=== PATIENT | female | born 1935 | race Caucasian/White ===

== ENCOUNTER 2024-07-03 21:00 | Inpatient (IN) | payer MEDICARE ==
[~2024-07-03] VITALS: Ht 170.2 cm; Wt 77.2 kg
[2024-07-03 22:03] VITALS: BP 131/76; TEMP 98; O2SAT 94
[2024-07-03] MEDS ORDERED: TIZA-180 PO (22:32)
[2024-07-03] MEDS ORDERED: TRAM50TA PO (22:32)
[2024-07-03] MEDS ORDERED: CYCL5TAB PO (22:32)
[2024-07-03] MEDS ORDERED: POLY17PO4 PO (22:32)
[2024-07-03] MEDS ORDERED: PANT40TA2 PO (22:32)
[2024-07-03] MEDS ORDERED: HYDR-4209 PO (22:32)
[2024-07-03] MEDS ORDERED: ONDA4TAB11 PO (22:32)
[2024-07-03] MEDS ORDERED: BISA10SU61 RC (22:32)
[2024-07-03] MEDS ORDERED: ACET325T53 PO (22:32)
[2024-07-03] MEDS ORDERED: SENN-18 PO (22:32)
[2024-07-03] MEDS ORDERED: AMLO5TAB4 PO (22:32)
[2024-07-03] MEDS ORDERED: METO-357 PO (22:32)
[2024-07-03] MEDS ORDERED: ATOR40TA PO (22:32)
[2024-07-04] MEDS: ACETAMINOPHEN 325 MG TABLET PO PRN (09:45)
[2024-07-04] MEDS ORDERED: OMEP20CA15 PO (09:55)
[2024-07-04] MEDS ORDERED: PANT40TA49 PO (09:57)
[2024-07-04] MEDS ORDERED: HYDROCODONE/APAP 5-325MG TABLET PO PRN (10:00)
[2024-07-04] MEDS ORDERED: BISACODYL 10 MG SUPP.RECT RC PRN (10:00)
[2024-07-04] MEDS ORDERED: TIZANIDINE HCL 4 MG TABLET PO PRN (10:15)
[2024-07-04] MEDS: PANTOPRAZOLE SODIUM 40 MG TABLET.DR PO SCH (10:44)
[2024-07-04] MEDS: AMLODIPINE 5 MG TABLET PO SCH (10:44)
[2024-07-04] MEDS: METOPROLOL SUCCINATE XL 50 MG TAB.SR.24H PO SCH (10:45)
[2024-07-04] MEDS: ATORVASTATIN 40 MG TABLET PO SCH (11:41)
[2024-07-04] MEDS ORDERED: GEMTESA PO (11:45)
[2024-07-04 12:00] VITALS: O2SAT 96
[2024-07-04 16:00] VITALS: BP 135/79; TEMP 98.2; O2SAT 96
[2024-07-04 20:00] VITALS: BP 103/56; TEMP 98.5; O2SAT 96
[2024-07-05 04:17] VITALS: O2SAT 97
[2024-07-05 06:00] VITALS: BP 140/90; TEMP 98.5; O2SAT 95
[2024-07-05] MEDS ORDERED: VIBEGRON 75 MG PO SCH (09:00)
[2024-07-05] MEDS ORDERED: [UNRECOGNIZED DRUG - OTHER] PO SCH (09:00)
[2024-07-05 10:05] VITALS: O2SAT 98
[2024-07-05 16:04] VITALS: BP 144/73; TEMP 98.4; O2SAT 95
[2024-07-05 20:00] VITALS: BP 150/82; TEMP 98.9; O2SAT 95
[2024-07-05] MEDS: METOPROLOL SUCCINATE XL 50 MG TAB.SR.24H PO SCH (20:28)
[2024-07-06 05:42] VITALS: O2SAT 98
[2024-07-06 06:00] VITALS: BP 117/65; TEMP 98; O2SAT 94
[2024-07-06] MEDS: TRAMADOL HCL 50 MG TABLET PO PRN (10:30)
[2024-07-06] MEDS: ENSURE ENLIVE (VAN) 240 ML LIQUID PO SCH (12:56)
[2024-07-06] MEDS: BISACODYL 5 MG TABLET.DR PO PRN (14:18)
[2024-07-06] MEDS: TRAMADOL HCL 50 MG TABLET PO SCH (15:00)
[2024-07-06 15:25] VITALS: O2SAT 98
[2024-07-06 16:18] VITALS: BP 117/78; TEMP 98.4; O2SAT 95
[2024-07-06 19:40] VITALS: BP 160/78; TEMP 98.5; O2SAT 94
[2024-07-07 05:51] VITALS: BP 138/75; TEMP 98.4; O2SAT 94
[2024-07-07 16:06] VITALS: BP 124/64; TEMP 97.6; O2SAT 95
[2024-07-07] MEDS: TRAMADOL HCL 50 MG TABLET PO PRN (18:04)
[2024-07-07] MEDS: ONDANSETRON ODT 4 MG TAB.RAPDIS SL PRN (18:04)
[2024-07-07 21:20] VITALS: BP 130/75; TEMP 98.2; O2SAT 99
[2024-07-07 21:36] VITALS: O2SAT 98
[2024-07-07] MEDS ORDERED: TRAMADOL HCL 50 MG TABLET PO SCH ×2 (22:00)
[2024-07-08 06:02] VITALS: BP 123/66; TEMP 98; O2SAT 100
[2024-07-08] MEDS: REMEDY ESSENTIAL ZINC PASTE 113 GM TOP PRN (08:52)
[2024-07-08] MEDS: MIRALAX 17 GM POWD.PACK PO PRN (09:40)
[2024-07-08 09:56] VITALS: BP 124/65; TEMP 98.2; O2SAT 99
[2024-07-08 14:40] VITALS: O2SAT 95; O2SAT 96
[2024-07-08 17:53] VITALS: BP 128/60; TEMP 98; O2SAT 99
[2024-07-08 20:00] VITALS: BP 131/75; TEMP 98.5; O2SAT 98
[2024-07-08 21:50] VITALS: O2SAT 96
[2024-07-09 05:27] VITALS: BP 101/63; TEMP 97.8; O2SAT 95
[2024-07-09 15:20] VITALS: O2SAT 97
[2024-07-09 16:39] VITALS: BP 128/62; TEMP 99.2; O2SAT 95
[2024-07-09 20:19] VITALS: BP 115/65; TEMP 98.2; O2SAT 93
[2024-07-09 20:38] VITALS: O2SAT 97
[2024-07-10 06:30] VITALS: BP 126/65; TEMP 98.3; O2SAT 93
[2024-07-10 06:48] LABS: BASOPHILS # (AUTO) 0.1 K/UL (0.0-0.2); BASOPHILS % (AUTO) 1.1 % (0.0-2.0); EOSINOPHILS # (AUTO) 0.3 K/uL (0.0-0.7); EOSINOPHILS % (AUTO) 4.4 % (0.0-7.0); HEMATOCRIT 32.4 % (31.2-41.9); HEMOGLOBIN 10.4 g/dL (10.9-14.3); LYMPHOCYTES # (AUTO) 1.5 K/uL (0.8-4.8); LYMPHOCYTES % (AUTO) 23.5 % (20.5-51.5); MEAN CORPUSCULAR HEMOGLOBIN 25.9 uug (24.7-32.8); MEAN CORPUSCULAR HGB CONC 32 g/dL (32.3-35.6); MEAN CORPUSCULAR VOLUME 80.9 fL (75.5-95.3); MONOCYTES # (AUTO) 1.1 K/uL (0.1-1.30); MONOCYTES % (AUTO) 16.6 % (0.0-11.0); NEUTROPHILS # (AUTO) 3.6 K/uL (1.8-8.9); NEUTROPHILS % (AUTO) 54.4 % (38.5-71.5); PLATELET COUNT (AUTO) 302 K/uL (179-408); RED BLOOD CELL COUNT(AUTO) 4.01 MIL/uL (3.63-4.92); RED CELL DISTRIBUTION WIDTH 15.6 % (12.3-17.7); WHITE BLOOD COUNT (AUTO) 6.6 K/uL (3.8-11.8)
[2024-07-10 07:01] LABS: ALANINE AMINOTRANSFERASE 12 U/L (14-59); ALBUMIN 2.9 g/dL (3.4-5.0); ALKALINE PHOSPHATASE 119 U/L (50-136); ASPARTATE AMINOTRANSFERASE 18 U/L (15-37); BILIRUBIN,TOTAL 0.9 mg/dL (0.2-1.0); CALCIUM 9.5 mg/dL (8.5-10.1); CARBON DIOXIDE 26 mmol/L (21-32); CHLORIDE 100 mmol/L (98-107); CREATININE 0.7 mg/dL (0.6-1.3); DIFFERENTIAL COMMENT 1; GLUCOSE 66 mg/dL (74-106); MAGNESIUM 1.8 mg/dL (1.8-2.4); PHOSPHOROUS 3.1 mg/dL (2.5-4.9); POTASSIUM 3.9 mmol/L (3.5-5.1); SODIUM SERUM 135 mmol/L (136-145); TOTAL PROTEIN, SERUM 6.5 g/dL (6.4-8.2); UREA NITROGEN, BLOOD 16 mg/dL (7-18)
[2024-07-10 08:59] LABS: EOSINOPHILS % (MANUAL) 2 % (0-8); LYMPHOCYTES % (MANUAL) 26 % (20-40); MONOCYTES % (MANUAL) 9 % (2-10); NEUTROPHILS % (MANUAL) 63 % (42-75); PLATELET ESTIMATE ADEQUATE
[2024-07-10 09:00] LABS: ANISOCYTOSIS 1+; HYPOCHROMASIA 1+
[2024-07-10 20:30] VITALS: BP 130/70; TEMP 98.2; O2SAT 93
[2024-07-11 06:25] VITALS: BP 142/79; TEMP 98.3; O2SAT 93
[2024-07-11 15:55] VITALS: BP 124/80; TEMP 97.9; O2SAT 94
[2024-07-11] MEDS: METHOCARBAMOL 500 MG TABLET PO PRN (16:24)
[2024-07-11 20:10] VITALS: BP 136/67; TEMP 97.8; O2SAT 90
[2024-07-12 06:10] VITALS: BP 128/71; TEMP 97.5; O2SAT 91
[2024-07-12 16:13] VITALS: BP 148/64; TEMP 97.9; O2SAT 95
[2024-07-12] MEDS: TRAMADOL HCL 50 MG TABLET PO SCH (19:29)
[2024-07-12 20:00] VITALS: BP 123/64; TEMP 98; O2SAT 95
[2024-07-13 06:00] VITALS: BP 132/71; TEMP 98.4; O2SAT 94
[2024-07-13 16:04] VITALS: BP 132/66; TEMP 98.5; O2SAT 96
[2024-07-13 20:00] VITALS: BP 123/74; TEMP 98.5; O2SAT 95
[2024-07-13 21:02] VITALS: O2SAT 95
[2024-07-14 06:00] VITALS: BP 150/83; TEMP 98.1; O2SAT 93
[2024-07-14 16:00] VITALS: BP 111/65; TEMP 98; O2SAT 97
[2024-07-14 20:00] VITALS: BP 129/69; TEMP 97.3; O2SAT 91
[2024-07-15 06:55] VITALS: BP 121/75; TEMP 98.7; O2SAT 95
[2024-07-15 16:31] VITALS: BP 113/70; TEMP 98.2; O2SAT 95
[2024-07-15 20:15] VITALS: BP 112/74; TEMP 98.4; O2SAT 92
[2024-07-16 07:00] VITALS: BP 128/79; TEMP 98.4; O2SAT 91
[2024-07-16 16:30] VITALS: BP 103/73; TEMP 98.3; O2SAT 95
[2024-07-16 19:43] VITALS: BP 120/64; TEMP 98; O2SAT 92
[2024-07-17 04:49] VITALS: O2SAT 94
[2024-07-17 06:00] VITALS: BP 118/64; TEMP 97; O2SAT 96
[2024-07-17] MEDS: SENNOSIDES 1 TABLET PO PRN (11:24)
[2024-07-17 15:36] VITALS: BP 114/61; TEMP 98; O2SAT 94
== END 2024-07-17 17:15 | disposition home health service (06) | DRG 560 ==
PROVIDERS: ADMIT Physical Medicine & Rehabilitation Pain Medicine; ATTEND Physical Medicine & Rehabilitation Pain Medicine
DX: Z47.89 Encounter for other orthopedic aftercare (principal); E44.0 Moderate protein-calorie malnutrition; I13.0 Hypertensive heart and chronic kidney disease with heart failure and stage 1 through stage 4 chronic kidney disease, or unspecified chronic kidney disease; I50.32 Chronic diastolic (congestive) heart failure; N39.0 Urinary tract infection, site not specified; M51.16 Intervertebral disc disorders with radiculopathy, lumbar region; D64.9 Anemia, unspecified; E78.5 Hyperlipidemia, unspecified; N18.9 Chronic kidney disease, unspecified; Z98.1 Arthrodesis status; D47.2 Monoclonal gammopathy; G62.9 Polyneuropathy, unspecified; I87.2 Venous insufficiency (chronic) (peripheral); M48.062 Spinal stenosis, lumbar region with neurogenic claudication; Z87.440 Personal history of urinary (tract) infections; Z88.8 Allergy status to other drugs, medicaments and biological substances
CPT/HCPCS: 36415; 70030-TC; 83735; 84100; 85025; 97535-GO-CO; Q0162